=== PATIENT | female | born 1990 | race Two or more races ===

== ENCOUNTER → 2018-03-14 | Emergency (ER) | payer OTHER ==
[~2018-03-14] VITALS: Ht 165.1 cm; Wt 58.1 kg
[~2018-03-14] MED LIST: AMOX1TAB5 PO; MUPIROCIN22 GM TOP; PROTECT PLUS S1 EACH PO
== END | disposition home or self-care (01) ==
LOC: ER 03:16
DX: R53.83 Other fatigue (principal); R10.84 Generalized abdominal pain

== ENCOUNTER 2018-03-15 23:34 | Emergency (ER) | payer OTHER ==
[~2018-03-15] VITALS: Ht 165.1 cm; Wt 58.1 kg
[~2018-03-15 23:34] MED LIST changes: -AMOX1TAB5 PO; -MUPIROCIN22 GM TOP
[2018-03-16] MEDS ORDERED: AMOX1TAB5 PO (01:03)
[2018-03-16] MEDS ORDERED: MUPIROCIN22 GM TOP (01:03)
== END 2018-03-16 01:48 | disposition home or self-care (01) ==
LOC: ER 23:34
DX: S80.811A Abrasion, right lower leg, initial encounter (principal); W54.0XXA Bitten by dog, initial encounter; Y93.89 Activity, other specified; Y92.038 Other place in apartment as the place of occurrence of the external cause; Y99.8 Other external cause status